=== PATIENT | female | born 1935 | race Caucasian/White ===

== ENCOUNTER 2021-12-11 14:23 | Outpatient (CLI) | payer MEDICARE, BC | END 2021-12-11 14:24 | disposition home or self-care (01) | LOC: CSHWCC 14:23 | PROVIDERS: ATTEND Nurse Practitioner Family | DX: I87.313 Chronic venous hypertension (idiopathic) with ulcer of bilateral lower extremity (principal); L97.822 Non-pressure chronic ulcer of other part of left lower leg with fat layer exposed; L97.212 Non-pressure chronic ulcer of right calf with fat layer exposed; R60.0 Localized edema | CPT/HCPCS: 29581 ==

== ENCOUNTER 2021-12-25 12:56 | Outpatient (CLI) | payer MEDICARE, BC | END 2021-12-25 12:57 | disposition home or self-care (01) | LOC: CSHWCC 12:56 | PROVIDERS: ATTEND Nurse Practitioner Family | DX: I87.312 Chronic venous hypertension (idiopathic) with ulcer of left lower extremity (principal); L97.822 Non-pressure chronic ulcer of other part of left lower leg with fat layer exposed; R60.0 Localized edema | CPT/HCPCS: 29581 ==

== ENCOUNTER 2022-01-15 13:53 | Outpatient (CLI) | payer MEDICARE, BC | END 2022-01-15 13:54 | disposition home or self-care (01) | LOC: CSHWCC 13:53 | PROVIDERS: ATTEND Nurse Practitioner Family | DX: R60.0 Localized edema (principal) | CPT/HCPCS: 97139; G0463; 99213 ==

== ENCOUNTER 2022-02-05 13:48 | Outpatient (CLI) | payer MEDICARE, BC | END 2022-02-05 13:49 | disposition home or self-care (01) | LOC: CSHWCC 13:48 | PROVIDERS: ATTEND Nurse Practitioner Family | DX: I87.312 Chronic venous hypertension (idiopathic) with ulcer of left lower extremity (principal); L97.822 Non-pressure chronic ulcer of other part of left lower leg with fat layer exposed; I87.311 Chronic venous hypertension (idiopathic) with ulcer of right lower extremity; L97.212 Non-pressure chronic ulcer of right calf with fat layer exposed; R60.0 Localized edema | CPT/HCPCS: 97139; G0463; 99213 ==

== ENCOUNTER 2022-03-03 14:02 | Outpatient (CLI) | payer MEDICARE, BC | END 2022-03-03 14:03 | disposition home or self-care (01) | LOC: CSHWCC 14:02 | PROVIDERS: ATTEND Nurse Practitioner Family | DX: R60.0 Localized edema (principal) ==

== ENCOUNTER 2022-03-17 13:49 | Outpatient (CLI) | payer MEDICARE, BC | END 2022-03-17 13:50 | disposition home or self-care (01) | LOC: CSHWCC 13:49 | PROVIDERS: ATTEND Nurse Practitioner Family | DX: I87.312 Chronic venous hypertension (idiopathic) with ulcer of left lower extremity (principal); L97.829 Non-pressure chronic ulcer of other part of left lower leg with unspecified severity; R60.0 Localized edema ==

== ENCOUNTER 2022-04-08 13:11 | Outpatient (CLI) | payer MEDICARE, BC | END 2022-04-08 13:12 | disposition home or self-care (01) | LOC: CSHWCC 13:11 | PROVIDERS: ATTEND Nurse Practitioner Family | DX: R60.0 Localized edema (principal) ==

== ENCOUNTER 2022-04-16 14:01 | Outpatient (CLI) | payer MEDICARE, BC | END 2022-04-16 14:02 | disposition home or self-care (01) | LOC: CSHWCC 14:01 | PROVIDERS: ATTEND Preventive Medicine Undersea and Hyperbaric Medicine | DX: I87.313 Chronic venous hypertension (idiopathic) with ulcer of bilateral lower extremity (principal); L97.822 Non-pressure chronic ulcer of other part of left lower leg with fat layer exposed; L97.212 Non-pressure chronic ulcer of right calf with fat layer exposed; R60.0 Localized edema | CPT/HCPCS: 99213; G0463 ==

== ENCOUNTER 2022-04-30 12:53 | Outpatient (CLI) | payer MEDICARE, BC | END 2022-04-30 12:54 | disposition home or self-care (01) | LOC: CSHWCC 12:53 | PROVIDERS: ATTEND Preventive Medicine Undersea and Hyperbaric Medicine | DX: I87.312 Chronic venous hypertension (idiopathic) with ulcer of left lower extremity (principal); L97.822 Non-pressure chronic ulcer of other part of left lower leg with fat layer exposed; R60.0 Localized edema | CPT/HCPCS: 99213; G0463 ==

== ENCOUNTER 2022-07-02 09:20 | Outpatient (CLI) | payer MEDICARE, BC | END 2022-07-02 09:21 | disposition home or self-care (01) | LOC: CSHWCC 09:20 | PROVIDERS: ATTEND Preventive Medicine Undersea and Hyperbaric Medicine | DX: I87.312 Chronic venous hypertension (idiopathic) with ulcer of left lower extremity (principal); L97.829 Non-pressure chronic ulcer of other part of left lower leg with unspecified severity; R60.0 Localized edema; I87.311 Chronic venous hypertension (idiopathic) with ulcer of right lower extremity; L97.819 Non-pressure chronic ulcer of other part of right lower leg with unspecified severity | CPT/HCPCS: 87070; 87077; 87186; 87205 ==

== ENCOUNTER 2022-08-12 14:42 | Outpatient (CLI) | payer MEDICARE, BC | END 2022-08-12 14:43 | disposition home or self-care (01) | LOC: CSHWCC 14:42 | PROVIDERS: ATTEND Nurse Practitioner Family | DX: R60.0 Localized edema (principal) | CPT/HCPCS: 97139; G0463; 99213 ==

== ENCOUNTER 2022-10-14 08:15 | Outpatient (CLI) | payer MEDICARE, BC | END 2022-10-14 08:16 | disposition home or self-care (01) | LOC: CSHWCC 08:15 | PROVIDERS: ATTEND Nurse Practitioner Family | DX: R60.0 Localized edema (principal) | CPT/HCPCS: 29581 ==

== ENCOUNTER 2022-11-04 12:06 | Outpatient (CLI) | payer MEDICARE, BC | END 2022-11-04 12:07 | disposition home or self-care (01) | LOC: CSHWCC 12:06 | PROVIDERS: ATTEND Nurse Practitioner Family | DX: I87.312 Chronic venous hypertension (idiopathic) with ulcer of left lower extremity (principal); L97.822 Non-pressure chronic ulcer of other part of left lower leg with fat layer exposed; R60.0 Localized edema | CPT/HCPCS: 29581 ==

== ENCOUNTER 2022-12-02 15:00 | Outpatient (CLI) | payer MEDICARE, BC | END 2022-12-02 15:01 | disposition home or self-care (01) | LOC: CSHWCC 15:00 | PROVIDERS: ATTEND Nurse Practitioner Family | DX: I87.312 Chronic venous hypertension (idiopathic) with ulcer of left lower extremity (principal); L97.822 Non-pressure chronic ulcer of other part of left lower leg with fat layer exposed; R60.0 Localized edema ==

== ENCOUNTER 2022-12-30 13:34 | Outpatient (CLI) | payer MEDICARE, BC | END 2022-12-30 13:35 | disposition home or self-care (01) | LOC: CSHWCC 13:34 | DX: I87.312 Chronic venous hypertension (idiopathic) with ulcer of left lower extremity (principal); L97.822 Non-pressure chronic ulcer of other part of left lower leg with fat layer exposed | CPT/HCPCS: 97139; G0463; 99213 ==

== ENCOUNTER 2023-01-30 11:36 | Outpatient (CLI) | payer MEDICARE, BC | END 2023-01-30 11:37 | disposition home or self-care (01) | LOC: CSHWCC 11:36 | PROVIDERS: ATTEND Nurse Practitioner Family | DX: R60.0 Localized edema (principal); I87.311 Chronic venous hypertension (idiopathic) with ulcer of right lower extremity; L97.819 Non-pressure chronic ulcer of other part of right lower leg with unspecified severity; I87.312 Chronic venous hypertension (idiopathic) with ulcer of left lower extremity; L97.829 Non-pressure chronic ulcer of other part of left lower leg with unspecified severity | CPT/HCPCS: 29581 ==

== ENCOUNTER 2023-03-04 13:11 | Outpatient (CLI) | payer MEDICARE, BC | END 2023-03-04 13:12 | disposition home or self-care (01) | LOC: CSHWCC 13:11 | PROVIDERS: ATTEND Nurse Practitioner Family | DX: R60.0 Localized edema (principal); I87.312 Chronic venous hypertension (idiopathic) with ulcer of left lower extremity; L97.829 Non-pressure chronic ulcer of other part of left lower leg with unspecified severity | CPT/HCPCS: 97139; G0463; 29581; 99211 ==

== ENCOUNTER 2023-03-25 13:57 | Outpatient (CLI) | payer MEDICARE, BC | END 2023-03-25 13:58 | disposition home or self-care (01) | LOC: CSHWCC 13:57 | PROVIDERS: ATTEND Nurse Practitioner Family | DX: R60.0 Localized edema (principal); I87.312 Chronic venous hypertension (idiopathic) with ulcer of left lower extremity; L97.829 Non-pressure chronic ulcer of other part of left lower leg with unspecified severity | CPT/HCPCS: 29581 ==

== ENCOUNTER 2023-04-08 08:51 | Outpatient (CLI) | payer MEDICARE, BC | END 2023-04-08 08:52 | disposition home or self-care (01) | LOC: CSHWCC 08:51 | PROVIDERS: ATTEND Nurse Practitioner Family | DX: R60.0 Localized edema (principal) | CPT/HCPCS: 29581 ==